=== PATIENT | male | born 1930 | race Caucasian/White ===

== ENCOUNTER 2016-08-02 23:44 | Emergency (ER) | payer MEDICARE, MEDICAID ==
[2016-08-03] VITALS: BP 141/63
--- NOTE | 2016-08-03 00:09 | EDM.PDOC ---
ED HPI GENERAL MEDICAL PROBLEM - General Chief Complaint: General Stated Complaint: fall, hematoma Time Seen by Provider: 08/02/16 23:55 Source of Information: Reports: Other ([place] home) History Limitations: Reports: Altered Mental Status (dementia) - History of Present Illness INITIAL COMMENTS - FREE TEXT/NARRATIVE: Patient found to be down on floor after fall during evening rounds at [place]. Interacting normally per usual per staff. Has baseline dementia. Staff says he can follow basic commands. Has obvious abrasions and hematoma on scalp. No other injuries noted. Usually able to ambulate with assistance and belt. Patient says he is fine when asked. Does not report any pain. Unable to perform ROS due to dementia. - Related Data Allergies Allergy/AdvReac Type Severity Reaction Status Date / Time Penicillins Allergy Unknown cannot Verified 08/03/16 00:08 remeber erythromycin base Allergy Cannot Verified 08/03/16 00:08 Remember Sulfa (Sulfonamide Allergy Cannot Verified 08/03/16 00:08 Antibiotics) Remember Home Meds: Home Meds Acetaminophen [Tylenol] 2 tab PO Q4HR PRN 06/01/15 [History] Alfuzosin HCl [Alfuzosin HCl ER] 10 mg PO DAILY 06/01/15 [History] Aspirin [Halfprin] 81 mg PO DAILY@18 06/01/15 [History] Calcium Carbonate [Tums Extra Strength] 1 tab PO Q4H PRN 06/01/15 [History] Docusate Sodium [Colace] 100 mg PO BID 06/01/15 [History] Ipratropium/Albuterol Sulfate [Iprat-Albut 0.5-3(2.5) mg/3 ml] 3 ml INH Q4HR PRN 06/01/15 [History] Magnesium Hydroxide [Milk of Magnesia] 30 ml PO ASDIRECTED PRN 06/01/15 [History ] Methyl Salicylate/Menthol [Muscle Rub] 1 applic TOP BID 06/01/15 [History] Polyethylene Glycol 3350 [MiraLAX] 17 gm PO Q2D 06/01/15 [History] Sodium Chloride 1 gm PO DAILY 06/01/15 [History] Albuterol [Ventolin HFA] 90 mcg INH Q4H PRN 09/11/15 [History] Acetaminophen [Tylenol Arthritis] 650 mg PO DAILY 08/03/16 [History] Citalopram Hydrobromide [Celexa] 10 mg PO DAILY 08/03/16 [History] Furosemide [Lasix] 40 mg PO DAILY 08/03/16 [History] Past Medical History HEENT History: Reports: Glaucoma, Hard of Hearing, Impaired Vision, Other (See Below) Other HEENT History: Preglaucoma, 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, the patient does wear glasses Cardiovascular History: Reports: Bypass, CAD, High Cholesterol, Hypertension, PTCA, PVD, Stents, Other (See Below) Other Cardiovascular History: Peripheral vascular disease by x-rays Respiratory History: Reports: COPD, Pulmonary Fibrosis, Other (See Below) Other Respiratory History: COPD, asbestosis, and pulmonary fibrosis by chest x- ray Gastrointestinal History: Reports: Chronic Constipation Genitourinary History: Reports: BPH, Prostate Disorder, UTI, Recurrent, Other ( See Below) Other Genitourinary History: History of prostate cancer Musculoskeletal History: Reports: Arthritis, Back Pain, Chronic, Neck Pain, Chronic, Osteoarthritis, Osteoporosis Neurological History: Reports: Alzheimers Disease Other Neuro History: Dementia Psychiatric History: Reports: Addiction, Alzheimers Disease, Anxiety, Dementia , Depression Endocrine/Metabolic History: Reports: Diabetes, Type II, Osteoporosis, Vitamin D Deficiency Hematologic History: Reports: None Immunologic History: Reports: None Oncologic (Cancer) History: Reports: Prostate, Other (See Below) Other Oncologic History: Prostate cancer with radioactive seed therapy - Past Surgical History HEENT Surgical History: Reports: Cataract Surgery, Oral Surgery, Other (See Below) Cardiovascular Surgical History: Reports: Coronary Artery Bypass, Coronary Artery Stent, Percutaneous Transluminal Angioplasty Male Surgical History: Reports: Prostate Biopsy, Other (See Below) Neurological Surgical History: Reports: Laminectomy, Spinal Fusion, Other (See Below) - Past Imaging History Past Imaging History: Reports: CAT Scan Social & Family History - Family History Family Medical History: Unobtainable - Tobacco Use Smoking Status *Q: Unknown Ever Smoked - Caffeine Use Caffeine Use: Reports: None - Recreational Drug Use Recreational Drug Use: No Drug Use in Last 12 Months: No - Living Situation & Occupation Living situation: Reports: , Extended Care Facility Occupation: Retired ED ROS GENERAL - Review of Systems Review Of Systems: Unable To Obtain ED EXAM, GENERAL - Physical Exam Exam: See Below Exam Limited By: Altered Mental Status (Patient able to cooperate with some of the exam, follows some directions.) General Appearance: No Apparent Distress, Thin, Other (awake, watching staff. Good eye contact. ) Eye Exam: Bilateral Eye: EOMI, PERRL Ears: Normal External Exam, Normal Canal, Hearing Grossly Normal, Normal TMs Nose: Normal Inspection, Normal Mucosa, No Blood Throat/Mouth: Normal Inspection, Normal Voice, No Airway Compromise Head: Other (large scalp hematoma on top of right side of head.). No: Facial Swelling, Facial Tenderness Neck: Supple, Non-Tender Respiratory/Chest: No Respiratory Distress, Lungs Clear, Normal Breath Sounds, No Accessory Muscle Use, Other (Some tenderness with palpation right chest) Cardiovascular: Normal Peripheral Pulses, Regular Rate, Rhythm, No Edema, No Murmur GI/Abdominal: Normal Bowel Sounds, Non-Tender (Male) Exam: Deferred Rectal (Males) Exam: Deferred Back Exam: Normal Inspection. No: CVA Tenderness (L), CVA Tenderness (R), Muscle Spasm, Paraspinal Tenderness, Vertebral Tenderness Extremities: Normal Inspection, Non-Tender, No Pedal Edema, Normal Capillary Refill, Other (pelvis stable and nontender. ). No: Arm Pain, Leg Pain Neurological: No Motor/Sensory Deficits, Memory Loss Recent Events, Other (able to ambulate with assistance and transfer belt) Psychiatric: Normal Affect, Normal Mood Skin Exam: Warm, Dry, Other (abrasions noted top of scalp on right, hematoma on right also) Course - Vital Signs Last Recorded V/S: Last Vital Signs Temp 36.3 C 08/02/16 23:51 Pulse 72 08/02/16 23:51 Resp 16 08/02/16 23:51 BP 141/63 H 08/02/16 23:51 Pulse Ox 95 08/02/16 23:51 - Orders/Labs/Meds Orders: Active Orders 24 hr Category Date Time Status Cervical Spine wo Cont [CT] Stat Exams 08/03/16 00:11 Taken Head wo Cont [CT] Stat Exams 08/03/16 00:03 Taken Ribs 2V wo Chest Rt [CR] Stat Exams 08/03/16 00:02 Taken - Radiology Interpretation Free Text/Narrative:: CT of head/neck, plain films of right ribs overall unremarkable for acute injury. Reviewed by Radiology. - Re-Assessments/Exams Free Text/Narrative Re-Assessment/Exam: 08/03/16 01:26 Patient sat comfortably throughout stay. Radiological studies negative for acute injury. [facility] Follow up as needed. Departure - Departure Time of Disposition: : Disposition: DC/Tfer to SNF 03 Condition: good Clinical Impression: Multiple contusions Fall Qualifiers: Encounter type: initial encounter Qualified Code(s): W19.XXXA - Unspecified fall, initial encounter Hematoma of scalp Qualifiers: Encounter type: initial encounter Qualified Code(s): S00.03XA - Contusion of scalp, initial encounter Abrasion of scalp Qualifiers: Encounter type: initial encounter Qualified Code(s): S00.01XA - Abrasion of scalp, initial encounter - Discharge Information Forms: ED Department Discharge Additional Instructions: Watch for any changes and follow up as needed if problems are noted. Ice or Tylenol ok if there is discomfort. - My Orders Last 24 Hours: My Active Orders 08/03/16 00:02 Ribs 2V wo Chest Rt [CR] Stat 08/03/16 00:03 Head wo Cont [CT] Stat 08/03/16 00:11 Cervical Spine wo Cont [CT] Stat - Assessment/Plan Last 24 Hours: My Active Orders 08/03/16 00:02 Ribs 2V wo Chest Rt [CR] Stat 08/03/16 00:03 Head wo Cont [CT] Stat 08/03/16 00:11 Cervical Spine wo Cont [CT] Stat
== END 2016-08-03 02:00 ==
LOC: LL.ED 23:44
DX: S00.03XA Contusion of scalp, initial encounter (principal); I25.810 Atherosclerosis of coronary artery bypass graft(s) without angina pectoris; I10 Essential (primary) hypertension; E78.00 Pure hypercholesterolemia, unspecified; J44.9 Chronic obstructive pulmonary disease, unspecified; M19.90 Unspecified osteoarthritis, unspecified site; E11.9 Type 2 diabetes mellitus without complications; F32.9 Major depressive disorder, single episode, unspecified; F41.9 Anxiety disorder, unspecified; Z95.5 Presence of coronary angioplasty implant and graft; Z88.0 Allergy status to penicillin; Z79.82 Long term (current) use of aspirin; Z88.1 Allergy status to other antibiotic agents; Z88.2 Allergy status to sulfonamides; Z79.899 Other long term (current) drug therapy; Z87.440 Personal history of urinary (tract) infections; Z98.49 Cataract extraction status, unspecified eye; W19.XXXA Unspecified fall, initial encounter
CPT/HCPCS: 70450; 71100-RT; 72125; 99283; 99284